=== PATIENT | male | born 1975 | race Two or more races ===

== ENCOUNTER 2019-04-03 06:48 | Emergency (ER) | payer MEDICAID ==
[~2019-04-03] VITALS: Ht 182.9 cm; Wt 102.0 kg
[2019-04-03] MEDS: SODIUM CHLORIDE 0.9% 1,000 ML IV ONE (07:16)
[2019-04-03] MEDS ORDERED: KETOROLAC 30MG/ML VIAL IV STA (07:16)
[2019-04-03 07:48] LABS: BASOPHILS % 0.9 % (0.0-2.0); EOSINOPHILS % 0.7 % (0.0-5.0); HEMATOCRIT. 44.9 % (42.0-52.0); HEMOGLOBIN. 15.2 g/dL (14.0-18.0); LYMPHOCYTES % 22.8 % (20.0-50.0); MEAN CORPUSCULAR HEMOGLOBIN 29.9 pg (28.0-32.0); MEAN CORPUSCULAR VOLUME 88.6 fL (80.0-94.0); MEAN PLATELET VOLUME 7.3 fl (7.4-10.4); MONOCYTES % 10.1 % (2.0-8.0); NEUTROPHILS % 65.5 % (40.0-76.0); PLATELET 388 x1000/uL (130-400); RED BLOOD CELL COUNT 5.07 mill/uL (4.7-6.1); RED CELL DISTRIBUTION WIDTH 12.8 % (11.6-14.6)
[2019-04-03] MEDS: ONDANSETRON HCL 4MG/2ML INJ IV STA (07:51)
[2019-04-03] MEDS: MORPHINE SULFATE 4 MG/ML CPJ (NOT FOR IM USE) IV STA (07:51)
[2019-04-03] MEDS: NITROGLYCERIN OINT 1GM/INCH UDPKT TD ONE (07:52)
[2019-04-03] MEDS: AMLODIPINE 10MG TABLET PO ONE (07:52)
[2019-04-03] MEDS: ASPIRIN 81MG TABLET PO ONE (07:52)
[2019-04-03 07:56] LABS: CHLORIDE 106 mEq/L (98-107)
[2019-04-03] MEDS: POTASSIUM CHLORIDE 20MEQ TABLET SR PO ONE (08:40)
[2019-04-03 09:20] VITALS: BP 156/89
[2019-04-03] MEDS ORDERED: ENOXAPARIN 40MG/0.4ML SYR SUBCUT SCH (09:30)
[2019-04-03] MEDS ORDERED: IPRATROPIUM/ALBUTEROL 0.5-3(2.5)MG/3ML NEB INH PRN (09:30)
[2019-04-03] MEDS ORDERED: HYDROCODONE/ACETAMINOPHEN 5/325MG TABLET PO PRN (09:30)
[2019-04-03] MEDS ORDERED: CLONIDINE 0.1MG TABLET PO PRN (09:30)
[2019-04-03] MEDS ORDERED: ACETAMINOPHEN 325MG TABLET PO PRN (09:30)
[2019-04-03] MEDS ORDERED: ONDANSETRON HCL 4MG/2ML INJ IV PRN (09:30)
[2019-04-03] MEDS ORDERED: GUAIFENESIN 200MG/10ML SUGAR FREE UDC PO PRN (09:30)
[2019-04-03] MEDS ORDERED: DIPHENHYDRAMINE 50MG/ML VIAL IV PRN (09:30)
[2019-04-03] MEDS ORDERED: MAGNESIUM/ALUMINUM HYDROXIDE/SIMETHICONE 30ML UDC PO PRN (09:30)
[2019-04-03] MEDS ORDERED: DOCUSATE SODIUM 100MG CAPSULE PO PRN (09:30)
[2019-04-03 09:42] LABS: *AMPHETAMINES SCREEN URINE PRESUMTIVE POSITIVE (NEGATIVE); *BARBITURATES SCREEN URINE NEGATIVE (NEGATIVE)
[2019-04-03 09:43] LABS: *BENZODIAZEPINES SCREEN URINE NEGATIVE (NEGATIVE); *COCAINE SCREEN URINE NEGATIVE (NEGATIVE); CANNABINOID URINE SCREEN PRESUMTIVE POSITIVE (NEGATIVE); METHADONE URINE SCREEN NEGATIVE (NEGATIVE); OPIATES URINE SCREEN PRESUMTIVE POSITIVE (NEGATIVE); PHENCYCLIDINE URINE SCREEN NEGATIVE (NEGATIVE)
[2019-04-03 10:44] LABS: PHOSPHORUS 2.4 mg/dL (2.5-4.9)
== END 2019-04-03 09:47 | disposition left against medical advice (07) ==
LOC: ER 06:48 → CANRESERV 09:36 → ENRESERV 09:36 → CANBEDREQ 09:42 → ER 09:47
DX: R07.9 Chest pain, unspecified (principal); I10 Essential (primary) hypertension; E78.5 Hyperlipidemia, unspecified; E87.6 Hypokalemia; K21.9 Gastro-esophageal reflux disease without esophagitis; F17.200 Nicotine dependence, unspecified, uncomplicated; Z88.8 Allergy status to other drugs, medicaments and biological substances
CPT/HCPCS: 36415; 71045; 80053; 80305; 83690; 83735; 83880; 84100; 84484; 85025; 93005; 96361; 96374; 96375; 99291; J2270; J2405; J7030

== ENCOUNTER 2020-02-14 14:53 | Emergency (ER) | payer MEDICAID ==
[~2020-02-14] VITALS: Ht 182.9 cm; Wt 102.0 kg
[2020-02-14 15:08] VITALS: BP 140/92
[2020-02-14] MEDS ORDERED: BACITRACIN ZINC OINT UDPKT TOP ONE (16:30)
[2020-02-14] MEDS ORDERED: IBUPROFEN 600MG TABLET PO ONE (16:30)
[2020-02-14] MEDS ORDERED: LIDOCAINE 1%/EPI 1:100,000 10 ML VIAL IJ ONE (16:30)
[2020-02-14] MEDS ORDERED: LIDOCAINE HCL/EPINEPHRINE 1%-EPI 1:100,000 20 ML VIAL INFIL NR (16:37)
== END 2020-02-14 18:33 | disposition left against medical advice (07) ==
LOC: ER 15:20
DX: S61.210A Laceration without foreign body of right index finger without damage to nail, initial encounter (principal); W26.8XXA Contact with other sharp object(s), not elsewhere classified, initial encounter; Y93.89 Activity, other specified; Y92.89 Other specified places as the place of occurrence of the external cause; Y99.8 Other external cause status; K21.9 Gastro-esophageal reflux disease without esophagitis
CPT/HCPCS: 12002; 99282; J3490